=== PATIENT | female | born 1995 | race Native Hawaiian/Other Pacific Islander ===

== ENCOUNTER 2020-03-09 17:28 | Outpatient (CLI) | payer OTHER ==
[2020-03-09 18:08] LABS: PLATELET COUNT 382 K/uL (152-353)
[2020-03-09 18:44] LABS: SODIUM 142 mmol/L (136-145)
== END 2020-03-09 19:02 | disposition home or self-care (01) ==
LOC: LAB 17:28
PROVIDERS: ATTEND Nurse Practitioner Family
DX: I47.1 Supraventricular tachycardia (principal); E03.9 Hypothyroidism, unspecified
CPT/HCPCS: 80053; 82306; 82550; 82553; 82607; 82746; 84443; 84484; 85027

== ENCOUNTER 2020-06-06 11:57 | Outpatient (CLI) | payer OTHER | END 2020-06-06 22:16 | disposition home or self-care (01) | LOC: RESP 11:57 | DX: I47.1 Supraventricular tachycardia (principal) ==

== ENCOUNTER 2020-10-14 08:12 | Outpatient (CLI) | payer OTHER | END 2020-10-14 19:19 | disposition home or self-care (01) | LOC: US 08:12 | PROVIDERS: ATTEND Family Medicine | DX: N83.209 Unspecified ovarian cyst, unspecified side (principal) ==

== ENCOUNTER 2022-07-30 20:22 | Emergency (ER) | payer OTHER ==
[~2022-07-30] VITALS: Ht 165.1 cm; Wt 83.5 kg
[2022-07-30 20:45] VITALS: BP 148/87; TEMP 98.6
== END 2022-07-30 21:35 | disposition home or self-care (01) ==
LOC: ED 20:22
PROC: 0HQFXZZ Repair Right Hand Skin, External Approach (ICD-10-PCS; principal; 2022-07-30)
DX: S61.411A Laceration without foreign body of right hand, initial encounter (principal); W45.8XXA Other foreign body or object entering through skin, initial encounter; Y93.G1 Activity, food preparation and clean up; Y92.89 Other specified places as the place of occurrence of the external cause
CPT/HCPCS: 90715; 99283